=== PATIENT | female | born 1965 | race Caucasian/White ===

== ENCOUNTER 2018-12-28 08:37 | Outpatient (CLI) | payer BC ==
[~2018-12-28 08:37] MED LIST: DEPO-PROVERA IM; MUSCLE RELAXER; PROP1TAB3 PO
[2018-12-28] MEDS ORDERED: BARIUM SULFATE 135 ML SUSP.RECON (E-Z-HD) PO ONE (09:15)
== END 2018-12-28 21:06 | disposition home or self-care (01) ==
LOC: SRD 08:37
PROVIDERS: ATTEND Otolaryngology Plastic Surgery within the Head & Neck
DX: R13.10 Dysphagia, unspecified (principal)
CPT/HCPCS: 74220-TC

== ENCOUNTER 2019-04-04 18:34 | Emergency (ER) | payer BC ==
[~2019-04-04] VITALS: Ht 165.1 cm; Wt 55.8 kg
[2019-04-04 18:40] VITALS: BP_SYST 137
--- NOTE | 2019-04-04 21:10 | NUR ---
Patient to ER bed 2 to gown for evaluation. Side rails up.
--- NOTE | 2019-04-04 21:14 | NUR ---
Pt presents to ER with with c/o L hand laceration. Pt A&Ox4. Pt states she was using a utility knife to cut something and "the knife slipped" and pt cut L hand. Pt states pain is 7/10. Pt states pain radiates down to wrist to arm. Pt states incident occurred approximately two and a half hours ago. Pt states tetanus up to date. Upon assessment, pt presents with a 3 cm laceration with controlled bleeding. Will continue to monitor.
--- NOTE | 2019-04-04 21:22 | NUR ---
ER Dr. Albarado at bedside examining patient.
[2019-04-04] MEDS ORDERED: LIDOCAINE 1% 10 MG/ML, 20 ML MDV SUBCUT ONE (21:30)
--- NOTE | 2019-04-04 21:45 | NUR ---
radiology at bedside
--- NOTE | 2019-04-04 22:43 | NUR ---
Pt medicated with morphine IM. Pt tolerated well. Will continue to monitor.
[2019-04-04] MEDS ORDERED: MORPHINE 4 MG/ML INJ. SYRINGE IM ONE (22:45)
--- NOTE | 2019-04-04 23:11 | NUR ---
Patient has a 3 cm laceration to left palm. Dr. Albarado applied 4 sutures using sterile technique. Edges well approximated. Site cleansed with normal saline. Dressing of Non-adherent applied to site. No bleeding noted. Pt tolerated well.
[2019-04-04 23:30] VITALS: BP_SYST 128
[2019-04-04] MEDS ORDERED: BACITRACIN 1 GM OINT TP ONE ×2 (23:30→23:32)
[2019-04-04] MEDS ORDERED: BACITRACIN/POLYMYXIN B SULFATE 30 GM TOPICAL OINT. TP SCH (23:30)
--- NOTE | 2019-04-04 23:30 | NUR ---
Patient given written and verbal discharge instructions and verbalizes understanding. ER MD discussed with patient the results and treatment provided. Patient in stable condition. ID arm band removed. No Rx given. Patient educated on pain management and to follow up with PMD. Pain Scale 0. Opportunity for questions provided and answered. Medication side effect fact sheet provided.
== END 2019-04-04 23:30 | disposition home or self-care (01) ==
LOC: SED 18:34
DX: S61.412A Laceration without foreign body of left hand, initial encounter (principal); W45.8XXA Other foreign body or object entering through skin, initial encounter; Y93.89 Activity, other specified; Y92.89 Other specified places as the place of occurrence of the external cause; Y99.8 Other external cause status
CPT/HCPCS: 12002; 73130; 96372; 99283; J2001; J2270